=== PATIENT | female | born 1940 | race Caucasian/White ===

== ENCOUNTER → 2016-08-01 | Outpatient (CLI) | payer OTHER, MEDICARE | LOC: CIMAGING 10:26 | DX: Z12.31 Encounter for screening mammogram for malignant neoplasm of breast (principal) | CPT/HCPCS: G0202 ==

== ENCOUNTER → 2017-06-05 | Outpatient (CLI) | payer OTHER, MEDICARE | LOC: CIMAGING 10:42 | PROVIDERS: ATTEND Family Medicine | DX: J42 Unspecified chronic bronchitis (principal) | CPT/HCPCS: 71046-PO ==

== ENCOUNTER → 2017-08-07 | Outpatient (CLI) | payer OTHER, MEDICARE | LOC: CIMAGING 10:30 | PROVIDERS: ATTEND Family Medicine | DX: Z12.31 Encounter for screening mammogram for malignant neoplasm of breast (principal) ==

== ENCOUNTER → 2018-02-10 | Outpatient (CLI) | payer OTHER, MEDICARE | LOC: CLAB 09:37 | PROVIDERS: ATTEND Family Medicine | DX: J18.9 Pneumonia, unspecified organism (principal); M41.84 Other forms of scoliosis, thoracic region | CPT/HCPCS: 71046-PO ==

== ENCOUNTER → 2018-08-13 | Outpatient (CLI) | payer OTHER, MEDICARE | LOC: CIMAGING 10:38 | PROVIDERS: ATTEND Family Medicine | DX: Z12.31 Encounter for screening mammogram for malignant neoplasm of breast (principal); N64.89 Other specified disorders of breast ==

== ENCOUNTER → 2018-08-27 | Outpatient (CLI) | payer OTHER, MEDICARE | LOC: EMCIMAGING 09:13 | PROVIDERS: ATTEND Family Medicine | DX: N63.22 Unspecified lump in the left breast, upper inner quadrant (principal); R92.8 Other abnormal and inconclusive findings on diagnostic imaging of breast ==